=== PATIENT | female | born 1965 | race Caucasian/White ===

== ENCOUNTER 2025-03-07 10:01 | Emergency (ER) | payer OTHER ==
[~2025-03-07] VITALS: Ht 167.6 cm; Wt 65.8 kg
[2025-03-07 10:18] VITALS: BP 120/80; TEMP 98.4; O2SAT 98
== END 2025-03-07 10:40 | disposition home or self-care (01) ==
LOC: ER 10:05
DX: L72.9 Follicular cyst of the skin and subcutaneous tissue, unspecified (principal); I10 Essential (primary) hypertension